=== PATIENT | female | born 1965 | race Caucasian/White ===

== ENCOUNTER 2023-01-01 13:27 | Outpatient (CLI) | payer BC | END 2023-01-01 13:28 | disposition home or self-care (01) | LOC: RAD 13:27 | PROVIDERS: ATTEND Family Medicine | DX: M79.672 Pain in left foot (principal) ==

== ENCOUNTER 2025-03-11 15:41 | Outpatient (CLI) | payer BC | END 2025-03-11 15:42 | disposition home or self-care (01) | LOC: SCSRAD 15:41 | PROVIDERS: ATTEND Family Medicine | DX: M54.6 Pain in thoracic spine (principal); M47.814 Spondylosis without myelopathy or radiculopathy, thoracic region | CPT/HCPCS: 72072 ==